=== PATIENT | female | born 1955 | race Caucasian/White ===

== ENCOUNTER 2024-02-09 12:12 | Emergency (ER) | payer MEDICARE, SELFPAY ==
[2024-02-09 12:37] VITALS: BP 144/71; PULSE 85; RESP 95; TEMP 36.6; O2SAT 95; BMI 30.1
--- NOTE | 2024-02-09 13:34 | ED_ITS ---
HPI - Wound/Laceration General Chief Complaint: Wound/Laceration Stated Complaint: head laceration Time Seen by Provider: 02/09/24 12:54 Source: patient Mode of arrival: Ambulatory History of Present Illness HPI narrative: 68-year-old female who has not anticoagulated struck her head on a cabinet when she was straightening of after bending over in a laundry room. No loss of consciousness, no headache, not sure when her last tetanus booster was. Would prefer to discuss tetanus status with her primary care provider when she returns home to [place]. She is accompanied by today. Related Data Home Medications Medication Instructions Recorded Confirmed hydroxyzine HCl 25 mg tablet 25 - 50 mg PO ONCE PM PRN Sleep 02/09/24 02/09/24 ibandronate 150 mg tablet 150 mg PO QMONTH 02/09/24 02/09/24 linaclotide 145 mcg capsule 145 mcg PO PRN PRN Diarrhea 02/09/24 02/09/24 (Linzess) lisinopril 10 mg tablet 10 mg PO DAILY 02/09/24 02/09/24 omeprazole 40 mg capsule,delayed 40 mg PO DAILY 02/09/24 02/09/24 release Allergies Allergy/AdvReac Type Severity Reaction Status Date / Time No Known Drug Allergies Allergy Verified 02/09/24 12:42 Patient History Social History Smoking Status: Never smoker Smoking Status: Never smoker alcohol intake frequency: 0-2 drinks per day Alcohol type: wine Substance Use Type: marijuana Exam Initial Vital Signs Initial Vital Signs: Vital Signs Temperature 98 F 02/09/24 12:37 Pulse Rate 85 02/09/24 12:37 Respiratory Rate 95 H 02/09/24 12:37 Blood Pressure 144/71 H 02/09/24 12:37 Pulse Oximetry 95 02/09/24 12:37 Oxygen Delivery Method Room Air 02/09/24 12:37 Const Other: Alert oriented and in no distress HENMT HENMT Other: There has an approximately 0.75 cm scalp laceration just to the left of the midline on the frontal scalp. It is not gaping it does not bleeding there was no cigarette swelling associated with Eyes Other: Pupils are equal round and reactive extraocular movements are intact Course Orders Ordered: Discontinued Medications Diphtheria/Tetanus/Acell Pertussis (Tet,Diph,Pertuss(Acell),Vac/Pf 0.5 Ml S yringe) 0.5 ml IM .ONCE ONE Stop: 02/09/24 13:05 Last Admin: 02/09/24 13:31 Dose: Not Given Documented By: JOMAR Vital Signs Vital signs: Vital Signs - 8 hr 02/09/24 12:37 Temperature 98 F Pulse Rate 85 Respiratory Rate 95 H Blood Pressure 144/71 H Pulse Oximetry 95 Oxygen Delivery Method Room Air MDM - Wound/Laceration MDM Narrative Medical decision making narrative: Minor scalp laceration that in my judgment does not require suturing or stapling. Low risk for serious head injury, discussed and offered head CT patient declined. Patient would prefer to follow up with her primary care provider regarding tetanus. We placed antibiotic ointment I recommended she apply antibiotic ointment daily. Discharge Plan Departure Patient Disposition: Home Clinical Impression: Laceration Instructions: DI for Minor Laceration Activity Restrictions/Additional Instructions: After examination today, I do not think that your laceration requires stapling or sutures. It should be fine to apply antibiotic ointment daily. You can wash her hair beginning tomorrow morning and if you have some more bleeding and just apply direct pressure for 10 minutes. We discussed a tetanus booster today, I can not confirm your tetanus status you did not want to be updated today I recommend you contact your primary care doctor as soon as possible to see whether or not you need a tetanus booster. We discussed imaging your head today. It is standard practice for head injuries after age 65 to obtain a [address] of the head to demonstrate that there is no bleeding around the brain. I agree that this is a low risk injury, and after discussion I think it is reasonable to forego this today. If you have a headache, vomiting, altered mental status unsteadiness or other changes in your mental status recheck in the emergency department and it would likely be appropriate at that point to do a CT head. Prescriptions: No Action omeprazole 40 mg capsule,delayed release(DR/EC) 40 mg PO DAILY lisinopril 10 mg tablet 10 mg PO DAILY hydroxyzine HCl 25 mg tablet 25 - 50 mg PO ONCE PM PRN (Reason: Sleep) ibandronate 150 mg tablet 150 mg PO QMONTH Linzess 145 mcg capsule 145 mcg PO PRN PRN (Reason: Diarrhea) Referrals: Miscellaneous,Doctor, [Primary Care Provider] - Stand Alone Forms: Patient Portal/API
[2024-02-09 13:37] VITALS: BP 138/65; PULSE 70; RESP 16; O2SAT 100
[2024-02-09] MEDS: BACITRACIN OINT 0.9 GM PCKT 1 APPLIC TOP (13:44)
== END 2024-02-09 13:56 | disposition home or self-care (01) ==
PROVIDERS: Emergency Provider Emergency Medicine
DX: S01.01XA Laceration without foreign body of scalp, initial encounter (principal); W22.09XA Striking against other stationary object, initial encounter
CPT/HCPCS: 99282; 99283